=== PATIENT | male | born 1990 | race Caucasian/White ===

== ENCOUNTER 2023-01-02 21:43 | Emergency (ER) | payer BC ==
[~2023-01-02] VITALS: Ht 165.1 cm; Wt 73.0 kg
[2023-01-02 21:54] VITALS: BP_SYST 142
--- NOTE | 2023-01-02 22:18 | NUR ---
Patient to ER bed 06 to gown for evaluation. Side rails up.
[2023-01-02] MEDS ORDERED: DIPHTH,PERTUSS(ACELL),TET VAC 0.5 ML VIAL (Tdap) I.M. ONE (22:30)
[2023-01-02] MEDS ORDERED: KETOROLAC TROMETHAMINE 15 MG VIAL IM ONE (23:45)
[2023-01-03] MEDS ORDERED: LIDOCAINE MPF 1% 50 MG/5 ML AMP INJ ONE (00:15)
[2023-01-03] MEDS ORDERED: LIDOCAINE PF 1% 30ML(POUR BTL) INJ ONE (00:27)
[2023-01-03] MEDS ORDERED: AUG875 PO (01:08)
[2023-01-03] MEDS ORDERED: BACITRACIN 1 GM OINT TP ONE (01:15)
[2023-01-03 01:17] VITALS: BP_SYST 135
--- NOTE | 2023-01-03 01:19 | NUR ---
PT IS MEDICALLY CLEARED FOR DISHARGE, ALL VITAL SIGNS ARE STABLE AND ITHIN NORMAL LIMITS, NO IV INSERTED DURING VISIT, ALL D/C INSTRUCTIONS GIVEN AND PT VERBALIZED UNDERSTANDING
== END 2023-01-03 02:10 | disposition home or self-care (01) ==
LOC: SED 21:43
DX: S61.012A Laceration without foreign body of left thumb without damage to nail, initial encounter (principal); Z79.899 Other long term (current) drug therapy; W54.0XXA Bitten by dog, initial encounter; Y93.89 Activity, other specified; Y92.89 Other specified places as the place of occurrence of the external cause; Y99.8 Other external cause status
CPT/HCPCS: 99284; 90715; 96372; 90471; 12001; 73130; J1885; J2001

== ENCOUNTER 2023-01-07 15:02 | Emergency (ER) | payer BC ==
[~2023-01-07] VITALS: Ht 170.2 cm; Wt 81.6 kg
[~2023-01-07 15:02] MED LIST: AUG875 PO
[2023-01-07 16:09] VITALS: BP_SYST 123
--- NOTE | 2023-01-07 16:15 | NUR ---
Pt in ED for wound check. Received stitches to left thumb 01/02 [id number] VSS Able to make needs known Pt placed in waiting room at this time
--- NOTE | 2023-01-07 19:00 | NUR ---
Patient placed in ER Hallway 1 for evaluation. Bed in lowest position with siderails up. Instructed to notify ED staff for any changes in condition or worsening of symptoms. Patient verbalized understanding.
--- NOTE | 2023-01-07 19:10 | NUR ---
DR. BAÑUELOS AT BEDSIDE EXAMINING THE PATIENT.
[2023-01-07 19:25] VITALS: BP_SYST 118
--- NOTE | 2023-01-07 19:25 | NUR ---
Patient given written and verbal discharge instructions BY DR. BAÑUELOS and verbalizes understanding. ER MD discussed with patient the results and treatment provided. Patient in stable condition. ID arm band removed. NO Rx given. Patient educated on pain management and to follow up with PMD. Pain Scale 0/10. Opportunity for questions provided and answered. Medication side effect fact sheet provided.
== END 2023-01-07 19:25 | disposition home or self-care (01) ==
LOC: SED 15:02
DX: Z48.01 Encounter for change or removal of surgical wound dressing (principal)
CPT/HCPCS: 99281

== ENCOUNTER 2023-01-23 15:34 | Emergency (ER) | payer BC ==
[~2023-01-23] VITALS: Ht 170.2 cm; Wt 67.6 kg
[2023-01-23 15:43] VITALS: BP_SYST 136
--- NOTE | 2023-01-23 15:46 | NUR ---
DR ASHFORD BY BED FOR EXAM
--- NOTE | 2023-01-23 15:52 | NUR ---
SUTURES BEING REMOVED BY [facility] EMT
--- NOTE | 2023-01-23 15:56 | NUR ---
PT CAME INTO ED FOR SUTURE REMOVAL. PT WOUND WAS PREPPED BEFORE PROCEDURE WITH [facility]C PREP PAD. SUTURES WERE REMOVED FROM LEFT HAND THUMB WITH SUTURE REMOVAL KIT WITHOUT COMPLICATION TOTAL OF 4 SUTURES WERE REMOVED. THERE WERE NO SIGNS OF REDNESS INFECTION OR EDEMA. PT STATED HE STILL HAS PAIN ON THE NAIL BED UPON PRESSURE.
--- NOTE | 2023-01-23 16:00 | NUR ---
Patient given written and verbal discharge instructions and verbalizes understanding. ER MD discussed with patient the results and treatment provided. Patient in stable condition. ID arm band removed.
[2023-01-23 16:09] VITALS: BP_SYST 136
== END 2023-01-23 16:00 | disposition home or self-care (01) ==
LOC: SED 15:34
DX: Z48.02 Encounter for removal of sutures (principal)
CPT/HCPCS: 99281

== ENCOUNTER 2023-12-10 23:04 | Emergency (ER) | payer OTHER, BC ==
[~2023-12-10] VITALS: Ht 165.1 cm; Wt 76.2 kg
[2023-12-10 23:07] VITALS: BP_SYST 160; PULSE 60; RESP 18; TEMP 97.9; O2SAT 97
[2023-12-11 01:04] LABS: BASOPHILS # (AUTO) 0.1 K/uL (0.0-0.2); BASOPHILS % (AUTO) 0.7 % (0.0-2.0); EOSINOPHILS # (AUTO) 0.5 K/uL (0.0-0.4); EOSINOPHILS % (AUTO) 5.4 % (0.0-4.0); HEMATOCRIT 43.9 % (36-54); HEMOGLOBIN 15.1 g/dL (14.0-18.0); LYMPHOCYTES # (AUTO) 3.2 K/uL (1.0-5.5); LYMPHOCYTES % (AUTO) 36.6 % (20.5-51.5); MEAN CORPUSCULAR HEMOGLOBIN 29 pg (27-31); MEAN CORPUSCULAR HGB CONC 34 % (32-36); MEAN CORPUSCULAR VOLUME 85 fL (79.0-98.0); MONOCYTES # (AUTO) 0.5 K/uL (0.0-1.0); MONOCYTES % (AUTO) 5.5 % (1.7-9.3); NEUTROPHILS # (AUTO) 4.6 K/uL (1.8-7.7); NEUTROPHILS % (AUTO) 51.8 % (40.0-70.0); PLATELET COUNT (AUTO) 214 K/uL (130-430); RED BLOOD CELL COUNT(AUTO) 5.15 MIL/uL (4.2-6.2); RED CELL DISTRIBUTION WIDTH 12.9 % (9.0-15.0); WHITE BLOOD COUNT (AUTO) 8.8 K/uL (4.8-10.8)
[2023-12-11 01:40] LABS: ANION GAP 11 (5-15); CALCIUM 8.7 mg/dL (8.4-11.0); CARBON DIOXIDE 25 mmol/L (23-29); CHLORIDE 103 mmol/L (98-107); CREATININE 0.84 mg/dL (0.55-1.30); GFR AFRICAN AMERICAN 135 mL/min (>90); GFR NON AFRICAN-AMERICAN 112 mL/min (>90); GLUCOSE 95 mg/dL (74-106); POTASSIUM 3.6 mmol/L (3.5-5.1); SODIUM SERUM 139 mmol/L (136-145); UREA NITROGEN, BLOOD 14 mg/dL (8-21)
[2023-12-11 01:43] LABS: ALCOHOL, BLOOD < 3 mg/dL (<10)
[2023-12-11] MEDS: KETOROLAC TROMETHAMINE 30 MG VIAL IM ONE (01:54)
[2023-12-11] MEDS: ACETAMINOPHEN 500 MG TABLET PO ONE (01:55)
[2023-12-11 02:35] VITALS: BP_SYST 160; PULSE 60; RESP 18; TEMP 97.9; O2SAT 97
== END 2023-12-11 02:35 | disposition home or self-care (01) ==
LOC: SED 23:04
DX: S06.0X0A Concussion without loss of consciousness, initial encounter (principal); M54.2 Cervicalgia; R10.9 Unspecified abdominal pain; V49.9XXA Car occupant (driver) (passenger) injured in unspecified traffic accident, initial encounter; Y93.89 Activity, other specified; Y92.89 Other specified places as the place of occurrence of the external cause; Y99.8 Other external cause status
CPT/HCPCS: 99285; 70450; 80048; 85025; 36415; 72125; 71260; 76376; 74177; 96372; G0482; J1885; Q9967